=== PATIENT | male | born 1960 | race African-American/Black ===

== ENCOUNTER 2018-03-01 14:28 | Inpatient (IN) ==
[2018-03-01] MEDS ORDERED: MORPHINE 4 MG/1 ML VIAL IV PRN (15:14)
[2018-03-01] MEDS ORDERED: ASPIRIN 325 MG TABLET PO STA (15:14)
[2018-03-01] MEDS ORDERED: ENOXAPARIN 100 MG/ML SYRINGE SUBCUT STA (15:14)
[2018-03-01] MEDS ORDERED: ONDANSETRON 4 MG/2 ML VIAL IV PRN ×2 (15:14→18:00)
[2018-03-01 15:20] LABS: Basophils % 0.3 % (0.0-0.8); Hematocrit 46.6 VOL% (42.0-52.0); Hemoglobin 15.6 GM/DL (14.0-18.0); Immature Granulocytes % 0.3 %; Immature Granulocytes Absolute 0.02 #; Lymphocytes # 1.6 10*3/uL (1.4-4.0); Lymphocytes % 22.1 % (21.2-54.2); Mean Corpuscular HGB Conc 33.5 GM/DL (32-36); Mean Corpuscular Hemoglobin 31 PG (27-34); Mean Corpuscular Volume 91.6 FL (87-102); Mean Platelet Volume 10.8 FL (9.6-12.0); Monocytes # 0.3 10*3/uL (0.11-0.8); Monocytes % 4.7 % (1.7-12.7); Neutrophils # 5.3 10*3/uL (1.4-7.4); Neutrophils % 72.6 % (38.7-73.9); Platelet Count 153 T/CUMM (130-400); Red Blood Count 5.09 MC/CUMM (3.8-5.5); Red Cell Distribution Width 14.3 % (9.3-17.3); White Blood Count 7.2 T/CUMM (4-12)
[2018-03-01 15:33] LABS: PT Patient Result 10.4 SECS; Partial Thromboplastin Time 25.4 SECS (0-40)
[2018-03-01 15:34] LABS: Albumin 3.8 G/DL (3.4-5.0); Bilirubin,Total 0.7 MG/DL (0.2-1.0); Calcium 9.5 MG/DL (8.5-10.1); Osmolality,Calculated 277.5 MOS/KG (273-304); Potassium 4.4 MMOL/L (3.5-5.1); Total Protein 7.7 G/DL (6.4-8.3)
[2018-03-01] MEDS ORDERED: NITROGLYCERIN 2% OINT 1 INCH/GM PACK TOP STA (15:48)
[2018-03-01] MEDS ORDERED: NITROGLYCERIN SL 0.4 MG TABLET SL PRN (15:48)
[2018-03-01] MEDS ORDERED: METOPROLOL TARTRATE 5 MG/5 ML VIAL IV STA (15:49)
[2018-03-01] MEDS ORDERED: ACETAMINOPHEN 325 MG TABLET PO PRN (18:00)
[2018-03-01] MEDS ORDERED: MORPHINE 4 MG/1 ML VIAL IV STA (18:00)
[2018-03-01] MEDS: SODIUM CHLORIDE 0.9% 1,000 ML IV SCH (18:36)
[2018-03-01 20:22] LABS: CKMB % 6.9 %
[2018-03-01] MEDS: DOCUSATE SODIUM 100 MG CAPSULE PO SCH (21:58)
[2018-03-01] MEDS: NITROGLYCERIN 2% OINT 1 INCH/GM PACK TOP SCH (21:58)
[2018-03-02 00:58] LABS: Basophils % 0.3 % (0.0-0.8); Eosinophils % 0.1 % (0.00-10.9); Hemoglobin 14.4 GM/DL (14.0-18.0); Immature Granulocytes % 0.3 %; Immature Granulocytes Absolute 0.02 #; Lymphocytes # 1.8 10*3/uL (1.4-4.0); Lymphocytes % 24.1 % (21.2-54.2); Mean Corpuscular HGB Conc 33.5 GM/DL (32-36); Mean Corpuscular Hemoglobin 31 PG (27-34); Mean Corpuscular Volume 91.3 FL (87-102); Mean Platelet Volume 11.1 FL (9.6-12.0); Monocytes # 0.7 10*3/uL (0.11-0.8); Monocytes % 9.6 % (1.7-12.7); Neutrophils # 4.9 10*3/uL (1.4-7.4); Neutrophils % 65.6 % (38.7-73.9); Platelet Count 146 T/CUMM (130-400); Red Blood Count 4.71 MC/CUMM (3.8-5.5); Red Cell Distribution Width 14.4 % (9.3-17.3); White Blood Count 7.5 T/CUMM (4-12)
[2018-03-02 01:06] LABS: Calcium 8.3 MG/DL (8.5-10.1); Osmolality,Calculated 274.8 MOS/KG (273-304); Potassium 3.7 MMOL/L (3.5-5.1)
[2018-03-02 01:08] LABS: Risk Ratio 5.27; VLDL CHOLESTEROL 53.8 MG/DL
[2018-03-02] MEDS: NITROGLYCERIN 2% OINT 1 INCH/GM PACK TOP SCH ×4 (01:55→18:25)
[2018-03-02] MEDS: SODIUM CHLORIDE 0.9% 1,000 ML IV SCH ×3 (02:51→21:33)
[2018-03-02] MEDS ORDERED: ENOXAPARIN 120 MG/0.8 ML SYRINGE SUBCUT SCH (04:00)
[2018-03-02] MEDS ORDERED: DIAZEPAM 5 MG TABLET PO ONE (07:52)
[2018-03-02] MEDS ORDERED: diphenhydrAMINE CAP 25 MG CAPSULE PO ONE (07:52)
[2018-03-02] MEDS ORDERED: MAGNESIUM SULF RIDER 2 GM in PREMIX 1 EACH IV PRN (07:52)
[2018-03-02] MEDS ORDERED: POTASSIUM CHLORIDE RIDER 10 MEQ in PREMIX 1 EACH IV PRN (07:52)
[2018-03-02] MEDS ORDERED: TIROFIBAN 0 MCG in PREMIX 1 EACH IV ONE (08:03)
[2018-03-02] MEDS ORDERED: TIROFIBAN IV ONE ×2 (08:03→10:00)
[2018-03-02] MEDS ORDERED: TIROFIBAN 5,000 MCG/100 ML PREMIX IV SCH ×2 (08:30→12:16)
[2018-03-02] MEDS: PANTOPRAZOLE 40 MG TABLET PO SCH (08:58)
[2018-03-02] MEDS: METOPROLOL SUCCINATE XL 50 MG TABLET PO SCH (08:58)
[2018-03-02] MEDS: OLMESARTAN 20 MG TABLET PO SCH (08:58)
[2018-03-02] MEDS: amLODIPine 10 MG TABLET PO SCH (08:58)
[2018-03-02] MEDS ORDERED: METOPROLOL TARTRATE 50 MG TABLET PO SCH (09:00)
[2018-03-02] MEDS ORDERED: CHLORTHALIDONE 25 MG TABLET PO SCH (09:00)
[2018-03-02] MEDS ORDERED: ASPIRIN CHEW 81 MG TABLET PO SCH (09:00)
[2018-03-02] MEDS ORDERED: LIDOCAINE 1% 20 ML VIAL ONE (11:47)
[2018-03-02] MEDS ORDERED: MIDAZOLAM 2 MG/2 ML VIAL ONE (11:55)
[2018-03-02] MEDS ORDERED: HYDROmorphone 2 MG/1 ML VIAL ONE (11:55)
[2018-03-02] MEDS ORDERED: TIROFIBAN 5,000 MCG/100 ML PREMIX IV ONE (12:08)
[2018-03-02] MEDS ORDERED: ENOXAPARIN 60 MG/0.6 ML SYRINGE ONE (12:25)
[2018-03-02] MEDS ORDERED: TICAGRELOR 90 MG TABLET ONE (12:38)
[2018-03-02] MEDS ORDERED: ZALEPLON 5 MG CAPSULE PO PRN (12:50)
[2018-03-02 14:29] LABS: CKMB % 6.9 %
[2018-03-02] MEDS: ROSUVASTATIN 20 MG TABLET PO SCH (16:29)
[2018-03-02] MEDS: DOCUSATE SODIUM 100 MG CAPSULE PO SCH ×2 (16:29→21:27)
[2018-03-02] MEDS: TICAGRELOR 90 MG TABLET PO SCH (21:27)
[2018-03-03] MEDS: NITROGLYCERIN 2% OINT 1 INCH/GM PACK TOP SCH ×3 (00:09→13:24)
[2018-03-03] MEDS: SODIUM CHLORIDE 0.9% 1,000 ML IV SCH ×2 (01:44→13:24)
[2018-03-03 05:03] LABS: Basophils % 0.1 % (0.0-0.8); Eosinophils % 0.1 % (0.00-10.9); Hematocrit 45.1 VOL% (42.0-52.0); Hemoglobin 15.2 GM/DL (14.0-18.0); Immature Granulocytes % 0.2 %; Immature Granulocytes Absolute 0.02 #; Lymphocytes # 2.4 10*3/uL (1.4-4.0); Lymphocytes % 29.9 % (21.2-54.2); Mean Corpuscular HGB Conc 33.7 GM/DL (32-36); Mean Corpuscular Hemoglobin 30 PG (27-34); Mean Corpuscular Volume 89.7 FL (87-102); Mean Platelet Volume 11.4 FL (9.6-12.0); Monocytes % 12.4 % (1.7-12.7); Neutrophils # 4.6 10*3/uL (1.4-7.4); Neutrophils % 57.3 % (38.7-73.9); Platelet Count 158 T/CUMM (130-400); Red Blood Count 5.03 MC/CUMM (3.8-5.5); Red Cell Distribution Width 14.6 % (9.3-17.3)
[2018-03-03 05:19] LABS: Calcium 8.7 MG/DL (8.5-10.1); Osmolality,Calculated 276.5 MOS/KG (273-304); Potassium 3.8 MMOL/L (3.5-5.1)
[2018-03-03 05:43] LABS: CKMB % 2.6 %; Calcium 8.8 MG/DL (8.5-10.1); Osmolality,Calculated 276.5 MOS/KG (273-304); Potassium 3.9 MMOL/L (3.5-5.1)
[2018-03-03] MEDS ORDERED: ASPIRIN EC 81 MG TABLET PO SCH (09:00)
[2018-03-03] MEDS: TICAGRELOR 90 MG TABLET PO SCH (09:43)
[2018-03-03] MEDS: ROSUVASTATIN 20 MG TABLET PO SCH (09:43)
[2018-03-03] MEDS: OLMESARTAN 20 MG TABLET PO SCH (09:43)
[2018-03-03] MEDS: amLODIPine 10 MG TABLET PO SCH (09:43)
[2018-03-03] MEDS: METOPROLOL SUCCINATE XL 50 MG TABLET PO SCH (09:44)
[2018-03-03] MEDS: PANTOPRAZOLE 40 MG TABLET PO SCH (09:44)
[2018-03-03] MEDS: DOCUSATE SODIUM 100 MG CAPSULE PO SCH (09:44)
[2018-03-03 11:59] VITALS: BP 121/70
== END 2018-03-03 13:48 | disposition home or self-care (01) | DRG 247 ==
LOC: N.ED 14:28 → N.EDINP 14:28 → N.TELEN 17:50
PROVIDERS: ADMIT Family Medicine; ATTEND Family Medicine